=== PATIENT | female | born 1970 | race Caucasian/White ===

== ENCOUNTER 2023-03-23 11:43 | Observation (INO) ==
[2023-03-23] MEDS ORDERED: CONSULT PHARMACY - POTASSIUM & MAGNESIUM XX SCH (14:00)
[2023-03-23] MEDS ORDERED: NS 1,000 ML IV 1,000 ML IV SCH (14:00)
[2023-03-23 14:17] LABS: BASOPHILS % (AUTO) 0.7 % (0.2-1.0); EOSINOPHILS # (AUTO) 0.1 x10^3/uL (0.0-0.2); EOSINOPHILS % (AUTO) 2.1 % (0.9-2.9); HEMATOCRIT 34.2 % (36.0-47.0); LYMPHOCYTES # (AUTO) 1.1 X10^3/uL (1.3-2.9); LYMPHOCYTES % (AUTO) 27.1 % (21.0-51.0); MEAN CORPUSCULAR HEMOGLOBIN 26.2 pg (27.0-34.0); MEAN CORPUSCULAR HGB CONC 32.1 g/dL (33.0-35.0); MEAN CORPUSCULAR VOLUME 81.7 fL (80.0-100.0); MEAN PLATELET VOLUME 8.6 fL (7.4-11.0); MONOCYTES # (AUTO) 0.3 x10^3/uL (0.3-0.8); MONOCYTES % (AUTO) 7.2 % (0.0-13.0); NEUTROPHILS # (AUTO) 2.5 x10^3/uL (2.2-4.8); NEUTROPHILS % (AUTO) 62.9 % (42.0-75.0); PLATELET COUNT 131 X10^3/uL (150.0-450.0); RED BLOOD COUNT 4.19 X10^6/uL (3.5-5.4); RED CELL DISTRIBUTION WIDTH 15.9 % (11.6-16.5)
[2023-03-23 14:27] LABS: AMMONIA 19 umol/L (11-32)
[2023-03-23 14:33] LABS: ALANINE AMINOTRANSFERASE 30 Units/L (12-78); ALBUMIN 3.2 g/dL (3.4-5.0); ALKALINE PHOSPHATASE 257 Units/L (46-116); AMYLASE 52 Units/L (25-115); ASPARTATE AMINO TRANSFERASE 35 Units/L (15-37); BLOOD UREA NITROGEN 6 mg/dL (7-18); CALCIUM 8.6 mg/dL (8.5-10.1); CARBON DIOXIDE 31.1 mmol/L (21-32); CHLORIDE 103 mmol/L (98-107); COR CA(FOR HYPOALB) 9.2 mg/dL (8.5-10.1); CREATININE 0.59 mg/dL (0.55-1.02); GLUCOSE 89 mg/dL (65-99); LIPASE 121 Units/L (73-393); POTASSIUM 3.2 mmol/L (3.5-5.1); SODIUM 139 mmol/L (136-145); TOTAL PROTEIN 6.9 g/dL (6.4-8.2); eGFR NON BLACK RACES > 60 (>60)
[2023-03-23 14:51] VITALS: BMI 25.4
[2023-03-23] MEDS: PEPCID 20 MG VIAL 20 MG in NS 50 ML IV 50 ML IV SCH ×2 (15:22→20:59)
[2023-03-23 15:27] LABS: BILIRUBIN,URINE NEGATIVE (NEGATIVE); BLOOD/HEMOGLOBIN,URINE NEGATIVE (NEGATIVE); GLUCOSE, URINE NEGATIVE (NEGATIVE); KETONES,URINE NEGATIVE (NEGATIVE); LEUKOCYTE ESTERASE ,URINE NEGATIVE (NEGATIVE); NITRITES,URINE NEGATIVE (NEGATIVE); PH,URINE 6.5 (5.0 - 8.0); PROTEIN,URINE NEGATIVE (NEGATIVE); UROBILINOGEN,URINE NORMAL (NORMAL)
[2023-03-23 15:29] LABS: APPEARANCE,URINE CLEAR (CLEAR); COLOR,URINE STRAW (YELLOW)
[2023-03-23 16:08] LABS: BACTERIA,URINE TRACE /HPF (NEGATIVE); RBC,URINE 0-2 /HPF (0-3); SQUAMOUS EPITHELIAL CELL,UR FEW /HPF (NEGATIVE)
[2023-03-23] MEDS: NS + KCL 20 MEQ/L 1,000 ML IV SCH (17:30)
[2023-03-23] MEDS: HYZAAR 50/12.5 MG PO SCH (20:59)
[2023-03-23] MEDS: NORCO 10/325 TAB PO PRN (20:59)
[2023-03-23] MEDS: XANAX PO PRN (20:59)
[2023-03-23] MEDS: PROTONIX INJ 40 MG VIAL IVP SCH (20:59)
[2023-03-24] MEDS: NS + KCL 20 MEQ/L 1,000 ML IV SCH ×2 (03:38→05:48)
[2023-03-24 05:34] LABS: BASOPHILS % (AUTO) 0.7 % (0.2-1.0); EOSINOPHILS # (AUTO) 0.1 x10^3/uL (0.0-0.2); EOSINOPHILS % (AUTO) 2.6 % (0.9-2.9); HEMATOCRIT 33.4 % (36.0-47.0); HEMOGLOBIN 10.7 g/dL (12.0-16.0); LYMPHOCYTES # (AUTO) 1.2 X10^3/uL (1.3-2.9); LYMPHOCYTES % (AUTO) 36.7 % (21.0-51.0); MEAN CORPUSCULAR HEMOGLOBIN 26.4 pg (27.0-34.0); MEAN CORPUSCULAR HGB CONC 32.1 g/dL (33.0-35.0); MEAN CORPUSCULAR VOLUME 82.2 fL (80.0-100.0); MEAN PLATELET VOLUME 8.5 fL (7.4-11.0); MONOCYTES # (AUTO) 0.2 x10^3/uL (0.3-0.8); MONOCYTES % (AUTO) 7.3 % (0.0-13.0); NEUTROPHILS # (AUTO) 1.7 x10^3/uL (2.2-4.8); NEUTROPHILS % (AUTO) 52.7 % (42.0-75.0); PLATELET COUNT 107 X10^3/uL (150.0-450.0); RED BLOOD COUNT 4.06 X10^6/uL (3.5-5.4); RED CELL DISTRIBUTION WIDTH 15.7 % (11.6-16.5); WHITE BLOOD COUNT 3.2 X10^3/uL (3.6-10.0)
[2023-03-24 05:48] LABS: ALANINE AMINOTRANSFERASE 26 Units/L (12-78); ALKALINE PHOSPHATASE 233 Units/L (46-116); ASPARTATE AMINO TRANSFERASE 26 Units/L (15-37); BLOOD UREA NITROGEN 5 mg/dL (7-18); CALCIUM 8.3 mg/dL (8.5-10.1); CARBON DIOXIDE 28.6 mmol/L (21-32); CHLORIDE 107 mmol/L (98-107); COR CA(FOR HYPOALB) 9.1 mg/dL (8.5-10.1); CREATININE 0.57 mg/dL (0.55-1.02); GLUCOSE 83 mg/dL (65-99); MAGNESIUM 1.8 mg/dL (2.0-2.9); POTASSIUM 3.5 mmol/L (3.5-5.1); SODIUM 141 mmol/L (136-145); TOTAL PROTEIN 6.4 g/dL (6.4-8.2); eGFR NON BLACK RACES > 60 (>60)
[2023-03-24] MEDS ORDERED: CONSULT PHARMACY - POTASSIUM & MAGNESIUM XX SCH ×2 (07:00→08:00)
[2023-03-24] MEDS: NORCO 10/325 TAB PO PRN ×3 (08:19→22:03)
[2023-03-24] MEDS ORDERED: MAGNESIUM SULFATE 1 GRAM/100 mL PREMIX 1 G/100 ML BAG IV SCH (09:00)
[2023-03-24] MEDS ORDERED: K-RIDER 10 MEQ/NS 100 ML 10 MEQ/100 ML BAG IV SCH (09:00)
[2023-03-24] MEDS: PEPCID 20 MG VIAL 20 MG in NS 50 ML IV 50 ML IV SCH ×2 (10:25→20:05)
[2023-03-24] MEDS: PROTONIX INJ 40 MG VIAL IVP SCH ×2 (10:25→20:05)
--- NOTE | 2023-03-24 11:08 | DR.PROGNOT ---
HOSPITAL PROGRESS NOTE Progress Note for Day of: Progress Note Date: 03/24/23 Chief Complaint Chief Complaint: Still having moderate epigastric and right upper quadrant pain, no further nausea or vomiting. Lab work showed platelet count 107, WBC 3.2, hemoglobin 10.7, alkaline phosphatase 233, ammonia 19, normal bilirubin. Past Medical Family Social History Past Med/Fam/Surg Hx: No changes since H&P Allergies: Allergies No Known Drug Allergies Allergy (Verified 09/05/20 17:41) Review Of Systems ROS: No change since H&P Vital Signs Vital Signs: Vital Signs Temperature 97.9 F Temperature 97.5 F Pulse Rate [Left Radial] 83 Pulse Rate [Left Radial] 72 Respiratory Rate 18 Respiratory Rate 18 Respiratory Rate 18 Blood Pressure [Right Arm] 118/57 Blood Pressure [Right Arm] 112/55 O2 Sat by Pulse Oximetry 98 O2 Sat by Pulse Oximetry 100 Physical Exam Oriented: Normal Eyes: Normal Nose: Normal Throat: Normal Respiratory: Normal Cardiovascular: Normal GI:Auscultation: Normal GI:Palpation: Normal GI: Tenderness: Other (Moderate epigastric and right upper quadrant tenderness, rebound or rigidity.) Speech Pattern: Clear and Appropriate Laboratory and Diagnostics 03/24/23 05:05 03/24/23 05:05 Labs: 03/23/23 15:12 Urine,Clean Catch Urine Culture - Preliminary Laboratory WBC 3.2 X10^3/uL (3.6-10.0) L 03/24/23 05:05 RBC 4.06 X10^6/uL (3.5-5.4) 03/24/23 05:05 Hgb 10.7 g/dL (12.0-16.0) L 03/24/23 05:05 Hct 33.4 % (36.0-47.0) L 03/24/23 05:05 MCV 82.2 fL (80.0-100.0) 03/24/23 05:05 MCH 26.4 pg (27.0-34.0) L 03/24/23 05:05 MCHC 32.1 g/dL (33.0-35.0) L 03/24/23 05:05 RDW 15.7 % (11.6-16.5) 03/24/23 05:05 Plt Count 107 X10^3/uL (150.0-450.0) L 03/24/23 05:05 MPV 8.5 fL (7.4-11.0) 03/24/23 05:05 Neut % (Auto) 52.7 % (42.0-75.0) 03/24/23 05:05 Lymph % (Auto) 36.7 % (21.0-51.0) 03/24/23 05:05 [place] % (Auto) 7.3 % (0.0-13.0) 03/24/23 05:05 Eos % (Auto) 2.6 % (0.9-2.9) 03/24/23 05:05 Baso % (Auto) 0.7 % (0.2-1.0) 03/24/23 05:05 Neut # (Auto) 1.7 x10^3/uL (2.2-4.8) L 03/24/23 05:05 Lymph # (Auto) 1.2 X10^3/uL (1.3-2.9) L 03/24/23 05:05 [place] # (Auto) 0.2 x10^3/uL (0.3-0.8) L 03/24/23 05:05 Eos # (Auto) 0.1 x10^3/uL (0.0-0.2) 03/24/23 05:05 Baso # (Auto) 0.0 X10^3/uL (0.0-0.1) 03/24/23 05:05 Absolute Nucleated RBC 0.1 /100WBC 03/24/23 05:05 Sodium 141 mmol/L (136-145) 03/24/23 05:05 Corrected Sodium TNP 03/24/23 05:05 Potassium 3.5 mmol/L (3.5-5.1) 03/24/23 05:05 Chloride 107 mmol/L (98-107) 03/24/23 05:05 Carbon Dioxide 28.6 mmol/L (21-32) 03/24/23 05:05 BUN 5 mg/dL (7-18) L 03/24/23 05:05 Creatinine 0.57 mg/dL (0.55-1.02) 03/24/23 05:05 Est GFR (MDRD) Af Amer > 60 (>60) 03/24/23 05:05 Est GFR (MDRD) Non-Af > 60 (>60) 03/24/23 05:05 Glucose 83 mg/dL (65-99) 03/24/23 05:05 Calcium 8.3 mg/dL (8.5-10.1) L 03/24/23 05:05 Corrected Calcium 9.1 mg/dL (8.5-10.1) 03/24/23 05:05 Magnesium 1.8 mg/dL (2.0-2.9) L 03/24/23 05:05 Total Bilirubin 0.60 mg/dL (0.2-1.0) 03/24/23 05:05 AST 26 Units/L (15-37) 03/24/23 05:05 ALT 26 Units/L (12-78) 03/24/23 05:05 Alkaline Phosphatase 233 Units/L (46-116) H 03/24/23 05:05 Ammonia 19 umol/L (11-32) 03/23/23 14:00 Total Protein 6.4 g/dL (6.4-8.2) 03/24/23 05:05 Albumin 3.0 g/dL (3.4-5.0) L 03/24/23 05:05 Globulin 3.4 g/dL (2.5-4.5) 03/24/23 05:05 Albumin/Globulin Ratio 0.9 Ratio (1.1-2.1) L 03/24/23 05:05 Amylase 52 Units/L (25-115) 03/23/23 14:00 Lipase 121 Units/L (73-393) 03/23/23 14:00 Specimen Type Clean catch urine 03/23/23 15:12 Urine Color Straw (YELLOW) 03/23/23 15:12 Urine Appearance Clear (CLEAR) 03/23/23 15:12 Urine pH 6.5 (5.0 - 8.0) 03/23/23 15:12 Ur Specific [place] 1.015 (1.000-1.030) 03/23/23 15:12 Urine Protein Negative (NEGATIVE) 03/23/23 15:12 Urine Glucose (UA) Negative (NEGATIVE) 03/23/23 15:12 Urine Ketones Negative (NEGATIVE) 03/23/23 15:12 Urine Blood Negative (NEGATIVE) 03/23/23 15:12 Urine Nitrite Negative (NEGATIVE) 03/23/23 15:12 Urine Bilirubin Negative (NEGATIVE) 03/23/23 15:12 Urine Urobilinogen Normal (NORMAL) 03/23/23 15:12 Ur Leukocyte Esterase Negative (NEGATIVE) 03/23/23 15:12 Urine RBC 0-2 /HPF (0-3) 03/23/23 15:12 Urine WBC 0-2 /HPF (0-5) 03/23/23 15:12 Ur Squamous Epith Cells Few /HPF (NEGATIVE) 03/23/23 15:12 Urine Bacteria Trace /HPF (NEGATIVE) 03/23/23 15:12 Ur Culture Indicated? No/not indicated 03/23/23 15:12 Stl Occult Blood (IFOB) Positive (NEGATIVE) A 03/24/23 06:06 Assessment and Plan 1: Abdominal pain, fatty liver and possible early cirrhosis. (To obtain liver biopsy report from [place]) 3: History of precancerous polyps of the colon. For GI endoscopy during this admission.
[2023-03-24] MEDS ORDERED: SUPREP BOWEL PREP KIT PO SCH ×2 (11:15→15:00)
--- NOTE | 2023-03-24 11:44 | DR.H&P ---
H&P - History & Physical for Day of: H&P Date: 03/23/23 - Chief Complaint Chief Complaint: RUQ ABDOMINAL PAIN, NAUSEA, BLOOD IN STOOL - History of Present Illness History of Present Illness: IS A 53 YEAR OLD PATIENT OF OURS. SHE HAS A PMH OF HTN, FATTY LIVER WITH POSSIBLE LIVER CIRRHOSIS, ANXIETY, DEPRESSION, GERD, AND CHRONIC BACK PAIN. SURGICAL HX INCLUDES: CHOLECYSTECTOMY, TOTAL HYSTERECTOMY, AND SEVERAL COLONOSCOPIES AND POLYPECTOMIES. SHE PRESENTED TO THE OFFICE WITH COMPLAINTS OF RIGHT UPPER QUADRANT ABDOMINAL PAIN, NAUSEA, AND BLOOD IN THE STOOL. SHE REPORTS THAT SYMPTOMS HAVE BEEN PRESENT FOR THE PAST 3-4 DAYS. SHE REPORTS THAT PAIN IS WORSE AFTER EATING. SHE REPORTS ALSO HAVING ABDOMINAL BLOATING AND NAUSEA AFTER EATING. HER LAST EGD AND COLONOSCOPY WERE SEVERAL YEARS AGO. SHE DID HAVE ABNORMAL, PRECANCEROUS POLYPS ON HER LAST COLONOSCOPY. SHE DOES ADMIT TO SOME IRREGULAR BOWEL HABITS NOW. DECISION WAS MADE TO ADMIT PATIENT TO THE HOSPITAL FOR FURTHER EVALUATION AND TREATMENT. ON ADMISSION, HER VITALS WERE: 98.4-70-18-100%-145/69. LABS WERE OBTAINED. WBC 4.0, RBC 4.19, HGB 11.0, HCT 34.2, PLT COUNT 131, SODIUM 139, POTASSIUM 3.2, CHLORIDE 103, CARBON DIOXIDE 31.1, BUN 6, CREATININE 0.59, GLUCOSE 89, CALCIUM 8.6, TOTAL BILI 0.40, AST 35, ALT 30, ALK PHOS 257, AMMONIA 19, TOTAL PROTEIN 6.9, ALBUMIN 3.2, AMYLASE 52, LIPASE 121. URINALYSIS WAS OBTAINED AND WAS UNREMARKABLE, BUT A CULTURE WAS SET UP. STOOL WAS POSITIVE FOR OCCULT BLOOD. ON ADMISSION, SHE WAS STARTED ON NORMAL SALINE WITH POTASSIUM AND MAGNESIUM AT 80 ML/HR, FAMOTIDINE 20MG IV Q12H, PROTONIX 40MG IV BID. HER HOME MEDICATIONS OF XANAX, HYZAAR, AND NORCO WERE RESUMED. WE WILL OBTAIN AN ABDOMEN/PELVIS CT WITH CONTRAST. WE WILL CONSULT , GENERAL SURGEON, FOR POSSIBLE COLONOSCOPY. OTHERWISE, WE WILL FOLLOW UP WITH AM LABS AND CONTINUE TO MONITOR. TIME SPENT ON CLINICAL ASSESSMENT, REVIEWING LABS AND IMAGING, DECISION MAKING, AND DOCUMENTATION GREATER THAN 75 MINUTES. - Past Medical History Past Medical History: Anxiety, Depression, GERD, Hypertension Additional Medical History: FATTY LIVER WITH POSSIBLE CIRRHOSIS, CHRONIC LOW BACK PAIN - Past Surgical History Surgical History: Cholecystectomy, Hysterectomy, Ortho Surgery - Family History Family Medical History: Hypertension - Social History Does patient currently use any type of tobacco product: No Have you used tobacco products in the last 12 months: No Type of Tobacco Use: None Does any household member use tobacco: No Alcohol Use: None Drug Use: None - Review of Systems Constitutional: No Symptoms Reported. denies: Fever, Chills Eyes: No Symptoms Reported ENT: No Symptoms Reported Respiratory: No Symptoms Reported Cardiovascular: No Symptoms Reported Gastrointestinal: See HPI, Nausea, Abdominal Pain, Melena Genitourinary: No Symptoms Reported Musculoskeletal: No Symptoms Reported Skin: No Symptoms Reported Neurological: No Symptoms Reported - Physical Exam Vital Signs: Vital Signs Temperature 97.9 F Temperature 97.5 F Pulse Rate [Left Radial] 83 Pulse Rate [Left Radial] 72 Respiratory Rate 18 Respiratory Rate 18 Respiratory Rate 18 Blood Pressure [Right Arm] 118/57 Blood Pressure [Right Arm] 112/55 O2 Sat by Pulse Oximetry 98 O2 Sat by Pulse Oximetry 100 Oriented: Normal Eyes: Normal Ear: Normal Nose: Normal Throat: Normal Respiratory: Clear Throughout Cardiovascular: Normal : Normal Auscultation: Bowel Sounds: Normal Palpation: Normal Tenderness: RUQ, Mild Skin: Normal Musculoskeletal: Normal Psychiatric: Normal Mood Description: Calm Affect: Normal Speech Pattern: Clear - Assessment/Plan (1) Abdominal pain Qualifiers: Abdominal location: right upper quadrant Qualified Code(s): R10.11 - Right upper quadrant pain Status: Acute Plan: ADMIT, OBTAIN ABDOMEN/PELVIS CT, CONSULT GENERAL SURGERY, NORMAL SALINE WITH POTASSIUM AND MAGNESIUM AT 80 ML/HR, FAMOTIDINE 20MG IV Q12H, PROTONIX 40MG IV BID, RESUME HOME MEDS (2) Nausea & vomiting Qualifiers: Vomiting type: unspecified Qualified Code(s): R11.2 - Nausea with vomiting, unspecified Status: Acute (3) Melena Status: Acute (4) Elevated alkaline phosphatase level Status: Acute (5) History of fatty infiltration of liver Status: Chronic (6) GERD (gastroesophageal reflux disease) Status: Acute Plan: PEPCID AND PROTONIX IV (7) Anxiety Status: Acute Plan: RESUME XANAX (8) HTN (hypertension) Qualifiers: Hypertension type: primary hypertension Qualified Code(s): I10 - Essential (primary) hypertension Status: Acute Plan: RESUME HYZAAR - Allergies Allergies/Adverse Reactions: Allergies Allergy/AdvReac Type Severity Reaction Status Date / Time No Known Drug Allergies Allergy Verified 09/05/20 17:41 - Medications Home Medications: Home Medications Medication Instructions Recorded Confirmed alprazolam 0.5 mg tablet 0.5 mg PO HS 03/23/23 03/23/23 cyanocobalamin (vitamin B-12) 1 mcg IM HS 03/23/23 03/23/23 1,000 mcg/mL injection solution hydrocodone 10 mg-acetaminophen 1 tab PO QID PRN 03/23/23 03/23/23 325 mg tablet losartan 50 mg-hydrochlorothiazide 1 tab PO HS 03/23/23 03/23/23 12.5 mg tablet tramadol 50 mg tablet 50 mg PO QDAY PRN 03/23/23 03/23/23
[2023-03-24] MEDS: NS + KCL 20 MEQ/L 1,000 ML with MAGNESIUM SULFATE 50% INJ VIAL 1 G IV SCH ×4 (11:54→20:28)
[2023-03-24] MEDS: HYZAAR 50/12.5 MG PO SCH (20:06)
[2023-03-24] MEDS: XANAX PO PRN (20:13)
[2023-03-25] MEDS: NS + KCL 20 MEQ/L 1,000 ML with MAGNESIUM SULFATE 50% INJ VIAL 1 G IV SCH ×4 (00:44→09:28)
[2023-03-25 04:12] VITALS: TEMP 97.6
[2023-03-25 06:03] LABS: BASOPHILS % (AUTO) 0.7 % (0.2-1.0); EOSINOPHILS # (AUTO) 0.1 x10^3/uL (0.0-0.2); EOSINOPHILS % (AUTO) 2.4 % (0.9-2.9); HEMATOCRIT 32.5 % (36.0-47.0); HEMOGLOBIN 10.4 g/dL (12.0-16.0); LYMPHOCYTES # (AUTO) 1.2 X10^3/uL (1.3-2.9); LYMPHOCYTES % (AUTO) 35.8 % (21.0-51.0); MEAN CORPUSCULAR HEMOGLOBIN 26.2 pg (27.0-34.0); MEAN CORPUSCULAR HGB CONC 32.1 g/dL (33.0-35.0); MEAN CORPUSCULAR VOLUME 81.8 fL (80.0-100.0); MEAN PLATELET VOLUME 8.7 fL (7.4-11.0); MONOCYTES # (AUTO) 0.3 x10^3/uL (0.3-0.8); MONOCYTES % (AUTO) 7.6 % (0.0-13.0); NEUTROPHILS # (AUTO) 1.8 x10^3/uL (2.2-4.8); NEUTROPHILS % (AUTO) 53.5 % (42.0-75.0); PLATELET COUNT 105 X10^3/uL (150.0-450.0); RED BLOOD COUNT 3.97 X10^6/uL (3.5-5.4); RED CELL DISTRIBUTION WIDTH 16.2 % (11.6-16.5); WHITE BLOOD COUNT 3.4 X10^3/uL (3.6-10.0)
[2023-03-25 06:22] LABS: ALANINE AMINOTRANSFERASE 23 Units/L (12-78); ALBUMIN 2.9 g/dL (3.4-5.0); ALKALINE PHOSPHATASE 226 Units/L (46-116); ASPARTATE AMINO TRANSFERASE 22 Units/L (15-37); BLOOD UREA NITROGEN 7 mg/dL (7-18); CALCIUM 7.8 mg/dL (8.5-10.1); CARBON DIOXIDE 25.5 mmol/L (21-32); CHLORIDE 109 mmol/L (98-107); COR CA(FOR HYPOALB) 8.7 mg/dL (8.5-10.1); CREATININE 0.53 mg/dL (0.55-1.02); GLUCOSE 80 mg/dL (65-99); MAGNESIUM 2.1 mg/dL (2.0-2.9); POTASSIUM 3.8 mmol/L (3.5-5.1); SODIUM 142 mmol/L (136-145); TOTAL PROTEIN 6.3 g/dL (6.4-8.2); eGFR NON BLACK RACES > 60 (>60)
[2023-03-25] MEDS ORDERED: NS 1,000 ML IV 1,000 ML ONE (07:43)
[2023-03-25] MEDS ORDERED: VERSED ONE (07:53)
[2023-03-25] MEDS ORDERED: XYLOCAINE 2 % (PLAIN) ONE (07:53)
[2023-03-25] MEDS ORDERED: DIPRIVAN VIAL 20 ML ONE ×2 (07:53→08:03)
[2023-03-25 07:56] VITALS: RESP 16; O2SAT 99
[2023-03-25] MEDS: PROTONIX INJ 40 MG VIAL IVP SCH (09:17)
[2023-03-25] MEDS: PEPCID 20 MG VIAL 20 MG in NS 50 ML IV 50 ML IV SCH (09:17)
[2023-03-25] MEDS ORDERED: BUTT CREAM (COMPOUND) ONE (09:26)
[2023-03-25 09:52] VITALS: BP 116/62; PULSE 93
== END 2023-03-25 11:05 | disposition home or self-care (01) ==
LOC: MED/SURG
PROVIDERS: ADMIT Internal Medicine; ATTEND Internal Medicine
DX: R10.11 Right upper quadrant pain; K76.0 Fatty (change of) liver, not elsewhere classified; R10.13 Epigastric pain; K29.00 Acute gastritis without bleeding; R11.2 Nausea with vomiting, unspecified; K64.9 Unspecified hemorrhoids; D69.6 Thrombocytopenia, unspecified; Z86.010 Personal history of colon polyps; R94.5 Abnormal results of liver function studies; I10 Essential (primary) hypertension; E87.6 Hypokalemia; K21.9 Gastro-esophageal reflux disease without esophagitis; D12.2 Benign neoplasm of ascending colon; F41.8 Other specified anxiety disorders; K92.1 Melena; K57.30 Diverticulosis of large intestine without perforation or abscess without bleeding

== ENCOUNTER 2025-03-06 15:50 | Observation (INO) ==
--- NOTE | 2025-03-06 16:01 | EKG ---
Test Reason : Elevated heart rate Blood Pressure : */* mmHG Vent. Rate : 117 BPM Atrial Rate : 117 BPM P-R Int : 144 ms QRS Dur : 72 ms QT Int : 324 ms P-R-T Axes : 50 49 -3 degrees QTc Int : 451 ms Sinus tachycardia Nonspecific T wave abnormality Abnormal ECG No previous ECGs available Confirmed by Med Castillo MD ([id number]) on 03/07/2025 8:03:50 AM Referred By: Confirmed By: Med Castillo MD
[2025-03-06 16:05] VITALS: BMI 26.3
[2025-03-06] MEDS: NS 1,000 ML IV 1,000 ML IV ONE (16:08)
[2025-03-06] MEDS: DECADRON INJ IV ONE (16:08)
[2025-03-06] MEDS: ADRENALINE CHL INJ IM ONE ×2 (16:24→16:47)
--- NOTE | 2025-03-06 16:52 | DR.ALLERGY ---
HPI Time Seen Time Seen by Provider: 03/06/25 15:50 PCP Primary Care Physician: Tashia Complaint/Symptoms Chief Complaint Doctors Comments: 54-year-old female to ED from doctor's office where she received a Rocephin shot with symptoms of allergic reaction. Patient has taken Rocephin before without reaction but today has had a allergic reaction patient denies chest pain or shortness of breath but is very shaky. Chief Complaint:: Pt. SOB, shaky and a rash that "has now made her skin turn red" or flushed. Pt. also complains of "light headed." Started today after Pt. received an injection of Rocephin at the Dr office for UTI today at 2pm. Self Treatment fo Chief Complaint: Pt. driven to ED when symptoms occurred. COVID-19 Coronavirus risk:travel/contact w/high risk person: No Has patient experienced Coronavirus symptoms: No Source History Provided: Patient and Family Member Mode of Arrival Mode of Arrival: Ambulatory Timing Onset of Chief Complaint: 03/06/25 PMH PMH Past Medical History: Yes Past Medical History: Anxiety, Depression, GERD and Hypertension Past Surgical History: Yes Surgical History: Cholecystectomy, Hysterectomy and Ortho Surgery Past Surgical History Comment: Back surgery Family History History of Family Medical Conditions: No Family Medical History: Hypertension Social History Do you use any recreational Drugs:: No Travel Risk Coronavirus risk:travel/contact w/high risk person: No Has patient experienced Coronavirus symptoms: No Infectious screening In the last 2 months have you had wt loss of >10#?: NO Have you had fever, night sweats or hemotysis?: No Have you traveled outside the country in the last 6 months?: No Isolation: Standard ROS Review of Systems Constitutional: No Symptoms Reported Eyes: No Symptoms Reported ENTM: No Symptoms Reported Respiratoy: No Symptoms Reported Cardiovascular: No Symptoms Reported Gastrointestinal/Abdominal: No Symptoms Reported Genitourinary: No Symptoms Reported Neurological: See HPI, Anxiety and Other (Shaky) Musculoskeletal: No Symptoms Reported Integumentary: See HPI and Rash Hematologic/Lymphatic: No Symptoms Reported Endocrine: No Symptoms Reported Psychiatric: No Symptoms Reported All Other Systems: Reviewed and Negative PE Vitals Vital Signs: Temp Pulse Pulse Resp BP BP Pulse Ox 03/06/25 15:51 98.0 F 119 H 22 124/85 96 03/06/25 15:51 98.0 F 119 H 22 124/85 96 03/06/25 15:51 98.0 F 119 H 22 124/85 96 O2 Del Method 03/06/25 15:51 Room Air 03/06/25 15:51 Room Air 03/06/25 15:51 Room Air Constitutional Limitations: No Limitations General Appearance: Alert and Anxious Head Head Exam: Normal Inspection Eyes Eye exam: Normal Appearance ENT ENT Exam: Normal Exam Mouth Exam: Normal Inspection Throat Exam: Normal Inspection Neck Neck Exam: Normal Inspection Chest Chest Inspection: Normal Inspection Respiratory Respiratory Exam: Normal Lung Sounds Bilat Cardiovascular Cardiovascular Exam: Regular Rate and Normal Rhythm Abdominal Exam Abdominal Exam: Normal Inspection, Normal Bowel Sounds and Soft Extremities Extremities Exam: Normal Inspection Back Back Exam: Normal Inspection Neurologic Neurological Exam: Alert and Oriented X3 Psychiatric Psychiatric Exam: Normal Affect and Normal Mood Skin Skin Exam: Warm, Dry, Intact, Rash and Erythema COURSE Treatment Treatment: Discussed findings with patient she is much better after treatment but concerned about going home. Discussed with Dr. Davidson will admit ROR EKG Rate: 117 [place]: Normal Rhythm: ST Block: None Hypertrophy: None ST: Nonsp Opioid Opioid Risk Tool Age (Mehran box if 16-45): No History of Preadolescent Sexual Abuse: No Total: 0 Total Score Risk Category: Low Risk Copyright: Lele MEJIA predicting aberrant behaviors Discharge Plan Diagnosis Discharge Problem: Allergic reaction Discharge Plan Patient Disposition: 09 ADMITTED INPATIENT Condition: Stable Prescriptions: No Action losartan 50 mg tablet 50 mg PO QDAY tizanidine 2 mg tablet 2 mg PO QPM rizatriptan [Maxalt] 10 mg tablet 10 mg PO PRN PRN temazepam 7.5 mg capsule 7.5 mg PO QPM PRN oxycodone 15 mg tablet 15 mg PO TID PRN alprazolam 0.25 mg tablet PO cyanocobalamin (vitamin B-12) 1,000 mcg/mL solution Patient Comments: [NO ORIGINAL SIG] gabapentin 300 mg capsule 300 mg PO TID tramadol 100 mg tablet extended release 24 hr 100 mg PO QDAY buprenorphine 5 mcg/hour patch weekly 1 patch QWEEK promethazine 25 mg tablet 25 mg PO TID MDD 3 PRN (Reason: nausea and vomiting) Qty: 20 0RF hydrocodone-acetaminophen 10-325 mg tablet 1 tab PO QID PRN tramadol 50 mg tablet 50 mg PO QDAY PRN Rx Instructions: PT STATES I RARELY TAKE THIS . alprazolam 0.5 mg tablet 0.5 mg PO HS cyanocobalamin (vitamin B-12) 1,000 mcg/mL solution 1 mcg IM HS losartan-hydrochlorothiazide 50-12.5 mg tablet 1 tab PO HS pantoprazole 40 mg Tablet,Delayed Release (Dr/Ec) 40 mg PO QDAY Qty: 30 3RF Rx Instructions: TAKE ONE TABLET DAILY docusate sodium [Colace] 100 mg Capsule 100 mg PO BID Qty: 60 3RF Rx Instructions: TAKE ONE CAPSULE TWICE A DAY [facility] 10 billion cell -200 mg capsule 1 cap PO DAILY Qty: 30 1RF Health Concerns: Post Hospitalization: new medications and changes needed to prevent readmission or further decline. Pt educated and given instructions on all concerns. Plan of Treatment: Continue with present treatment and follow up plan. Pt is to keep follow up appointment as instructed and take medications as ordered. Follow ups/Referrals Follow ups/Referrals: [facility],None [Primary Care Provider] - 3 days Instructions Print Language: ARABIC
[2025-03-06] MEDS: BENADRYL INJ 50 MG VIAL IVP ONE (16:57)
[2025-03-06] MEDS ORDERED: BUPRENORPHINE topical SCH (18:13)
[2025-03-06] MEDS ORDERED: PHENERGAN TAB 25 MG PO PRN (18:13)
[2025-03-06] MEDS: ADRENALINE CHL INJ ONE (18:15)
[2025-03-06 18:32] LABS: BLOOD/HEMOGLOBIN,URINE NEGATIVE (NEGATIVE); LEUKOCYTE ESTERASE ,URINE 1+ (NEGATIVE); NITRITES,URINE NEGATIVE (NEGATIVE)
[2025-03-06 18:43] LABS: APPEARANCE,URINE CLEAR (CLEAR); SQUAMOUS EPITHELIAL CELL,UR NEGATIVE /HPF (NEGATIVE)
[2025-03-06] MEDS: VITAMIN B-12 INJ IM SCH (20:15)
[2025-03-06] MEDS: COLACE CAP 100 MG PO SCH (20:18)
[2025-03-06] MEDS: COZAAR PO SCH (20:57)
[2025-03-06] MEDS: ALPRAZOLAM ODT PO SCH (20:57)
[2025-03-06] MEDS ORDERED: HYZAAR 50/12.5 MG PO SCH (21:00)
[2025-03-06] MEDS: NEURONTIN CAP 300 MG PO SCH (21:34)
[2025-03-06] MEDS: BENADRYL INJ 50 MG VIAL IVP PRN (22:39)
[2025-03-06] MEDS: TYLENOL 325 MG TAB PO ONE (23:26)
[2025-03-07 04:22] VITALS: PULSE 90; RESP 20
[2025-03-07] MEDS ORDERED: ALPRAZOLAM ODT PO PRN (09:17)
[2025-03-07 09:54] VITALS: BP 146/76; TEMP 98.3; O2SAT 97
[2025-03-07] MEDS ORDERED: TAMBOCOR PO SCH (10:00)
[2025-03-07] MEDS ORDERED: COZAAR PO SCH (21:00)
== END 2025-03-07 10:00 | disposition home or self-care (01) ==
LOC: MED/SURG 15:50 → ER 15:50 → MED/SURG 18:12
PROVIDERS: ADMIT Obstetrics & Gynecology Obstetrics; ATTEND Obstetrics & Gynecology Obstetrics
DX: K21.9 Gastro-esophageal reflux disease without esophagitis; T88.6XXA Anaphylactic reaction due to adverse effect of correct drug or medicament properly administered, initial encounter; I10 Essential (primary) hypertension; R00.2 Palpitations; F41.8 Other specified anxiety disorders; N39.0 Urinary tract infection, site not specified; T36.1X5A Adverse effect of cephalosporins and other beta-lactam antibiotics, initial encounter; R00.0 Tachycardia, unspecified; R42 Dizziness and giddiness; Y92.59 Other trade areas as the place of occurrence of the external cause; F32.9 Major depressive disorder, single episode, unspecified; L27.0 Generalized skin eruption due to drugs and medicaments taken internally